=== PATIENT | male | born 1940 | race Caucasian/White ===

== ENCOUNTER → 2020-09-13 14:46 | Outpatient (CLI) | payer MEDICARE, OTHER ==
[2016-04-17 07:58] VITALS: BMI 25.1
== END | disposition home or self-care (01) ==
LOC: D.US 14:46
PROVIDERS: ATTEND Nurse Practitioner
DX: R10.32 Left lower quadrant pain (principal)

== ENCOUNTER → 2020-09-19 08:15 | Outpatient (CLI) | payer MEDICARE, OTHER ==
[2016-04-17 07:58] VITALS: BMI 25.1
== END | disposition home or self-care (01) ==
LOC: D.CT 08:15
PROVIDERS: ATTEND Nurse Practitioner
DX: R10.32 Left lower quadrant pain (principal); R10.31 Right lower quadrant pain

== ENCOUNTER 2020-10-01 05:18 | Day surgery (SDC) | payer MEDICARE, OTHER ==
[~2020-10-01] VITALS: Ht 180.3 cm; Wt 75.0 kg
[~2020-10-01 05:18] MED LIST: ADVAIR 100-50 DISKUS INH
[2020-10-01 05:37] LABS: BASOPHILS 0.6 % (0-2); EOSINOPHILS 7.3 % (0-7); HEMATOCRIT 42.2 % (42.0-54.0); HEMOGLOBIN 14.3 g/dL (13.5-17.5); IMMATURE GRANULOCYTES 0.2 % (0-5); LYMPHOCYTE ABS# 2.15 10x3/uL (1.32-3.57); LYMPHOCYTES 40.2 % (15-50); MCH 32.1 pg (26.0-34.0); MCHC 33.9 g/dL (31.0-37.0); MCV 94.6 fL (80.0-100.0); MEAN PLATELET VOLUME 8.7 fL (7.4-10.4); MONOCYTES 11.6 % (2-11); NEUTROPHIL ABS# 2.15 10x3/uL (1.78-5.38); NEUTROPHILS 40.1 % (40-80); PLATELET COUNT 234 10x3/uL (130-400); RBC 4.46 10x6/uL (4.20-6.10); RDW 12.4 % (11.5-14.5); WBC 5.4 10x3/uL (4.8-10.8)
[2020-10-01 05:55] LABS: CALC OSMOLALITY 278 mosm/kg (275-300); CALCIUM 8.5 mg/dL (8.5-10.1); CARBON DIOXIDE 27.7 mmol/L (21.0-32.0); CHLORIDE - SERUM 106 mmol/L (98-107); CREATININE - SERUM 0.8 mg/dL (0.6-1.3); GLUCOSE 89 mg/dL (74-106); POTASSIUM - SERUM 3.7 mmol/L (3.5-5.1); SODIUM 141 mmol/L (136-145); UREA NITROGEN 11 mg/dL (7-18); eGFR NON AFRICAN AMERICAN > 90 mL/min (90-120)
[2020-10-01 06:51] VITALS: BP 124/68; Ht 180.3 cm; Wt 75.0 kg
[2020-10-01] MEDS ORDERED: BACTRIM DS TAB1 EAC1 PO (08:35)
[2020-10-01] MEDS ORDERED: TYLENOL W/CODEI1 TAB PO (08:35)
--- NOTE | 2020-10-01 08:45 | NUR ---
0840 - CARE ASSUMED FROM SANTOSH THAKUR RN, REPORT RECEIVED
--- NOTE | 2020-10-01 09:15 | NUR ---
0910 ASSISSTED UP TO BR, VOIDS LG AMT. AMB. WITH MINIMAL ASSISSTANCE, RETURNED TO BED AND PT. ASKED HOW LONG HE HAD TO STAY, I SAID 1 HOUR IF HE WAS DOING WELL, COULD BE DISMISSED. AT SIDE
== END 2020-10-01 10:15 | disposition home or self-care (01) ==
LOC: D.OPS 05:18
PROVIDERS: Anesthesiology; ATTEND Surgery
DX: K40.30 Unilateral inguinal hernia, with obstruction, without gangrene, not specified as recurrent (principal); R10.32 Left lower quadrant pain; J44.9 Chronic obstructive pulmonary disease, unspecified; E78.5 Hyperlipidemia, unspecified

== ENCOUNTER 2020-10-07 09:32 | Emergency (ER) | payer MEDICARE, OTHER ==
[~2020-10-07] VITALS: Ht 180.3 cm; Wt 75.0 kg
[~2020-10-07 09:32] MED LIST changes: +BACTRIM DS TAB1 EAC1 PO; +TYLENOL W/CODEI1 TAB PO
[2020-10-07 09:46] VITALS: BP 133/82; Ht 180.3 cm; Wt 75.0 kg
== END 2020-10-07 10:09 | disposition home or self-care (01) ==
LOC: D.ER 09:32
DX: T81.89XA Other complications of procedures, not elsewhere classified, initial encounter (principal); Z48.01 Encounter for change or removal of surgical wound dressing; I10 Essential (primary) hypertension

== ENCOUNTER 2020-11-14 05:37 | Day surgery (SDC) | payer MEDICARE, OTHER ==
[~2020-11-14] VITALS: Ht 180.3 cm; Wt 76.4 kg
[2020-11-14 05:52] LABS: EOSINOPHILS 5.2 % (0-7); HEMATOCRIT 46.3 % (42.0-54.0); HEMOGLOBIN 15.4 g/dL (13.5-17.5); LYMPHOCYTES 34.6 % (15-50); MCH 30.9 pg (26.0-34.0); MCHC 33.2 g/dL (31.0-37.0); MEAN PLATELET VOLUME 6.5 fL (7.4-10.4); MONOCYTES 9.3 % (2-11); NEUTROPHILS 49.9 % (40-80); PLATELET COUNT 259 10x3/uL (130-400); RBC 4.98 10x6/uL (4.20-6.10); RDW 13.1 % (11.5-14.5)
[2020-11-14 06:10] VITALS: Ht 180.3 cm; Wt 76.4 kg
[2020-11-14 06:11] LABS: CALC OSMOLALITY 281 mosm/kg (275-300); CALCIUM 9.1 mg/dL (8.5-10.1); CARBON DIOXIDE 27.5 mmol/L (21.0-32.0); CHLORIDE - SERUM 105 mmol/L (98-107); CREATININE - SERUM 0.8 mg/dL (0.6-1.3); GLUCOSE 98 mg/dL (74-106); POTASSIUM - SERUM 3.8 mmol/L (3.5-5.1); SODIUM 142 mmol/L (136-145); UREA NITROGEN 10 mg/dL (7-18); eGFR NON AFRICAN AMERICAN > 90 mL/min (90-120)
--- NOTE | 2020-11-14 09:30 | NUR ---
0850 IV DC'D. CATHETER TIP INTACT. NO BLEEDING AT SITE. COBAN DRESSING APPLIED. REVIEWED DISCHARGE INSTRUCTIONS WITH PT AND HIS WHO BOTH VOICE UNDERSTANDING OF INSTRUCTIONS.
== END 2020-11-14 09:03 | disposition home or self-care (01) ==
LOC: D.OPS 05:37
PROVIDERS: Anesthesiology; ATTEND Surgery
DX: Z12.11 Encounter for screening for malignant neoplasm of colon (principal); K57.30 Diverticulosis of large intestine without perforation or abscess without bleeding; K64.8 Other hemorrhoids